=== PATIENT | male | born 2005 | race Two or more races ===

== ENCOUNTER 2024-04-05 11:11 | Emergency (ER) | payer OTHER, SELFPAY ==
[2024-04-05 11:13] VITALS: BP 105/70
--- NOTE | 2024-04-05 12:01 | ED.GENMED ---
History of Present Illness
General
Chief Complaint: Throat Problem
Source: patient
Time Seen by Provider: 04/05/24 11:41
History of Present Illness
History of Present Illness:
18yoM with no significant past medical history presenting for evaluation of a sore throat. Patient reports having oral sex with a female 2 months ago. He was notified several days later by the female that she was not feeling well and that she
tested positive for gonorrhea. Patient went to [facility] and had a throat swab which was positive for gonorrhea. He received a dose of IM antibiotics at that time. Symptoms resolved for over a month but then recurred about 2.5 weeks ago.
He reports sore throat and states that he saw red bumps in the back of his throat. He also is having nausea, vomiting, diarrhea, and joint pains. He denies any fevers, rashes, joint swelling, dysuria, penile discharge. He was seen in follow-up
at [facility] and had a repeat gonorrhea test which was negative. He states he was also tested for syphilis and HIV which were negative. Patient believes he has mono and is requesting to be tested for this. He denies any sexual contact in
the past 2 months.
Phy Exam
General Physical Exam
General Presentation: well appearing and no apparent distress
General age: appears stated age
General Skin: warm and dry
General Habitus: normal
General Mental: alert
General Hydration: appears well hydrated
ENT Exam
ENT Exam: TM's normal, neck supple, normocephalic, pharyngeal erythema and other (Mild erythema to posterior oropharynx. No tonsillar hypertrophy or exudates. Uvula midline. Normal phonation. No trismus. Tolerating oral secretions without
difficulty. )
Cardiovascular Exam
Cardiovascular Exam: regular rate/rhythm and no murmur
Pulmonary Exam
Pulmonary Exam: lungs clear, no respiratory distress, no rales, no crackles and no wheezing
[place] Coma Scale
Eye Opening: Spontaneous
Verbal Response: Oriented
Motor Response: Obeys Commands
GCS Total Score: 15
Skin Exam
Skin Exam: normal color and warm/dry
Psychiatric Exam
Psychiatric Exam: normal mood/affect
Course
Orders/Labs/Results
Orders:
Orders
04/05/24 12:51
COVID-19 Antigen Urgent
Source: Nasal Swab
Complete Blood Count/With Diff Urgent
Comprehensive Metabolic Panel Urgent
Monotest Urgent
Influenza A+B Rapid Molecular Urgent
KANWAL Source: Nasal Swab
Specimen Description:
04/05/24 13:47
Rapid Strep Group A Urgent
KANWAL Source: Throat/Pharynx
Specimen Description:
Date Specimen was Collected: 04/05/24
Time Specimen was Collected: 13:37
04/05/24 14:18
Dexamethasone [Decadron] 10 mg PO NOW STA
Abnormal Lab Results
04/05/24
12:51
WBC 4.3 L 10^3/uL
(4.8-10.8)
Monoscreen Positive A
(Negative)
04/05/24 12:51
04/05/24 12:51
Vital Signs
Initial and Last Documented VS:
Initial Vital Signs
Temp Pulse Resp BP Pulse Ox
98.4 F 68 18 105/70 100
04/05/24 11:13 04/05/24 11:13 04/05/24 11:13 04/05/24 11:13 04/05/24 11:13
Last Documented Vital Signs
Temp Pulse Resp BP Pulse Ox
98.4 F 71 20 132/80 99
04/05/24 11:13 04/05/24 15:01 04/05/24 15:01 04/05/24 15:01 04/05/24 15:01
MDM/Problems Addressed
Differential Diagnosis Includes:
18yoM here with sore throat, nausea, vomiting, diarrhea, joint pains, fatigue x 2.5 weeks. Recently treated for gonorrhea, repeat testing 2 weeks ago was negative. Patient believes he has mono. He is afebrile and hemodynamically stable. He is
well-appearing in no acute distress. There is mild erythema to the posterior oropharynx. Exam is otherwise reassuring. Differential diagnosis includes but is not limited to: Viral illness, strep pharyngitis, mononucleosis
Initial ED plan: Check basic labs, Monospot, COVID/flu swab, and rapid strep testing.
*Critical Care Note
Total Time (30-74mins, 75-104mins- exclusive of procedures): Not Applicable
Update Note
Update Note:
Monospot is positive. COVID/flu negative. Strep negative. Labs unremarkable other than a very mild leukopenia. Patient stable for discharge. Will give dose of Decadron here. Supportive care discussed. He was advised to avoid contact sports
for 4 to 6 weeks. Advised follow-up with PCP and ED return precautions discussed. He expressed understanding and is agreeable to plan. He was discharged in stable condition.
ED Attending Note
-
Portions of this chart may have been created with voice recognition software.� Occasional wrong word or��sound alike� substitutions may have occurred due to the inherent limitations of voice recognition software.
Discharge Plan
Departure
Patient Disposition: Home (Routine Discharge)
Date of Disposition: 04/05/24
Time of Disposition: 14:17
Patient with high blood pressure during this ER visit?: No
Discharge Problem:
Mononucleosis
Instructions: Mononucleosis (DC)
Referrals:
Lian Mckay, DO [Family Provider] -
Activity Restrictions/Additional Instructions:
Drink plenty of fluids and rest. Take Tylenol and ibuprofen as needed for pain. No contact sports for 4-6 weeks.
Please follow-up with your family doctor. Return to the ER with any new or worsening symptoms.
Interventions
Interventions:
*Risk Screen - Suicide Last Done: 04/05/24 15:28
*General Assessment Last Done: 04/05/24 13:59
*Neglect/Abuse Screening Last Done: 04/05/24 15:27
ED- Fall Risk Assessment Last Done: 04/05/24 15:28
*ED COVID-19 Vaccine History Last Done: 04/05/24 15:28
*Nursing Disposition Last Done: 04/05/24 15:28
ED-EENT Assessment Last Done: 04/05/24 13:59
ED- Pulmonary Assessment Last Done: 04/05/24 13:59
Discharge Date and Time
Discharge Date/Time: 04/05/24 15:15
Print Language: LATVIAN
[2024-04-05 13:04] LABS: % Basophils 0.7 % (0-2); % Eosinophils 0.7 % (0-6); % Immature Granulocytes 0.2 % (0-0.5); % Monocytes 5.4 % (1.7-9.3); Absolute Lymphocytes 1.8 10^3/uL (1.2-3.4); Absolute Monocytes 0.2 10^3/uL (0.1-0.6); Absolute Neutrophils 2.2 10^3/uL (1.4-6.5); Hematocrit 39.9 % (39.0-52.0); Hemoglobin 14.7 g/dL (13.0-18.0); Mean Corp Hgb Conc. 36.8 g/dL (33.0-37.0); Mean Corpuscular Hgb 29.7 pg (27.0-31.0); Mean Corpuscular Volume 80.6 fL (80.0-94.0); Mean Platelet Volume 9.5 fL (7.4-10.4); Nucleated Red Blood Cells % 0 % (-); Platelet Count 382 10^3/uL (130-400); Red Blood Cell Count 4.95 10^6/uL (4.70-6.10); Red Cell Dist. Width 11.5 % (11.5-14.5); White Blood Cell Count 4.3 10^3/uL (4.8-10.8)
[2024-04-05 13:18] LABS: ALT (SGPT) 17 U/L (0-50); AST (SGOT) 24 U/L (17-59); Albumin 4.9 g/dl (3.5-5.0); Alkaline Phosphatase 66 U/L (38-126); Blood Urea Nitrogen 12 mg/dl (9-20); Calcium 10.1 mg/dl (8.4-10.2); Carbon Dioxide 23 mmol/L (22-30); Chloride 104 mmol/L (98-107); Glucose 93 mg/dl (70-99); Potassium 4.2 mmol/L (3.5-5.1); Sodium 140 mmol/L (135-145); Total Bilirubin 0.9 mg/dl (0.2-1.3); Total Protein 7.5 g/dl (6.3-8.2); eGFR > 60.00
[2024-04-05 13:20] LABS: COVID-19 Antigen Negative (Negative)
[2024-04-05 14:05] LABS: Monotest Positive (Negative)
[2024-04-05] MEDS: DECADRON 10 MG PO (14:58)
[2024-04-05 15:01] VITALS: BP 132/80
== END 2024-04-05 15:15 | disposition home or self-care (01) ==
LOC: EMR 11:11
PROVIDERS: Physician Assistant; EMERGENCY PHYSICIAN Emergency Medicine; FAMILY PHYSICIAN Family Medicine
DX: B27.90 Infectious mononucleosis, unspecified without complication (principal); R11.2 Nausea with vomiting, unspecified; R19.7 Diarrhea, unspecified; M25.50 Pain in unspecified joint; A54.9 Gonococcal infection, unspecified; Z11.52 Encounter for screening for COVID-19
CPT/HCPCS: 99283; 80053; 85025; 86308; 87070; 87502; 87811; 87880

== ENCOUNTER 2024-04-18 09:51 | Emergency (ER) | payer OTHER, SELFPAY ==
[2024-04-18 09:53] VITALS: BP 112/74
[2024-04-18 11:48] VITALS: BMI 16.8
[2024-04-18 12:02] VITALS: BP 132/76
--- NOTE | 2024-04-18 12:16 | ED.GENMED ---
History of Present Illness
<Filemon Amos MD, Resident - Last Filed: 04/18/24 14:57>
General
Chief Complaint: Abdominal Symptoms
Source: patient and records
Time Seen by Provider: 04/18/24 11:14
Travel History
Have you traveled to any high risk areas for coronavirus over the past 14 days?: No
Have you had any contact with someone who has COVID-19?: No
Do you have any symptoms of coronavirus? Fever > 100 degrees, chills, cough, shortness of breath, sore throat, loss of taste or smell, muscle aches, or headache?: No
History of Present Illness
History of Present Illness:
Judd Bourgeois, 18-year-old male with a recent history of gonorrhea pharyngitis and infectious mononucleosis, has had persistent abdominal pain, nausea, vomiting, fatigue, weakness, sore throat and intermittent fevers for the past 6 weeks. He had an
encounter of unprotected oral sex in early-February after which he was diagnosed and treated with an IM antibiotic shot for gonococcal pharyngitis at [facility]. Tested negative for chlamydia and syphilis at that time; negative for HIV 1 month
after the encounter. His symptoms resolved, but he started feeling sick again around mid-March. He tested positive for infectious mononucleosis in early-April. The symptoms have not improved, and the abdominal and oral symptoms have slightly
worsened. The patient is feeling very anxious about possibly having contracted HIV.
Review of Systems
<Filemon Amos MD, Resident - Last Filed: 04/18/24 14:57>
Review of Systems
Allergies reviewed?: Yes
All Other Systems: ROS reviewed and negative except as documented in HPI and ROS
Phy Exam
<Filemon Amos MD, Resident - Last Filed: 04/18/24 14:57>
General Physical Exam
General Presentation: well appearing and no apparent distress
General Skin: warm and dry
General Habitus: normal
General Mental: alert
General Hydration: appears well hydrated
ENT Exam
ENT Exam: normocephalic and pharyngeal erythema
Eye Exam
Eye Exam: PERRL, cornea clear and conjunctiva normal
Cardiovascular Exam
Cardiovascular Exam: regular rate/rhythm, no edema, no murmur and normal peripheral pulses
Pulmonary Exam
Pulmonary Exam: lungs clear, no respiratory distress, no rales, no crackles, no rhonchi, no stridor, no wheezing and no cough
Gastrointestinal Exam
Gastrointestinal Exam: normal bowel sounds, soft, no organomegaly, no pulsatile mass, non distended, splenomegaly (mild) and tender (upper abdominal)
Neurological Exam
Neurological Exam: alert, oriented x3, no motor deficits and speech normal
Musculoskeletal Exam
Musculoskeletal Exam: full ROM and no edema
Skin Exam
Skin Exam: normal color, warm/dry, no rash and no petechia
Psychiatric Exam
Psychiatric Exam: normal mood/affect
Course
<Filemon Amos MD, Resident - Last Filed: 04/18/24 14:57>
Orders/Labs/Results
Orders:
Orders
04/18/24 11:51
Ondansetron HCl [Zofran] 4 mg PO NOW STA
04/18/24 12:04
Complete Blood Count/With Diff Urgent
Comprehensive Metabolic Panel Urgent
HIV 4th Generation [HIV Combo] Urgent
Lipase Urgent
Syphilis/T. pallidum Ab Reflex Urgent
Comment: RPR ADDED ON BY FLOOR 1PM 04-18-24
04/18/24 12:09
Herpes Simplex Vir Subtype PCR [S] Urgent
Herpes Source: Vesicular Fluid
04/18/24 12:24
Ondansetron Orally Disint [Zofran Odt (Orally Disintegrating)] 4 mg PO NOW STA
04/18/24 12:27
Add On- LAB Urgent
Tests Added?: RPR
04/18/24 12:33
CT Abd/pelvis W Iv Cont Urgent
Comment:
Reason For Exam: worsening abdominal pain; splenomegaly
04/18/24 12:36
Stool Culture Urgent
KANWAL Source: Feces/Stool
Specimen Description:
04/18/24 13:05
Chlamydia/GC by PCR Urgent
KANWAL Source: Urine
Specimen Description:
Source:: URINE
Date Specimen was Collected: 04/18/24
Time Specimen was Collected: 13:02
Abnormal Lab Results
04/18/24
12:04
Hct 38.1 L %
(39.0-52.0)
Glucose 103 H mg/dl
(70-99)
Calcium 10.6 H mg/dl
(8.4-10.2)
Albumin 5.3 H g/dl
(3.5-5.0)
04/18/24 12:04
04/18/24 12:04
Vital Signs
Initial and Last Documented VS:
Initial Vital Signs
Temp Pulse Resp BP Pulse Ox
97.7 F 68 18 112/74 97
04/18/24 09:53 04/18/24 09:53 04/18/24 09:53 04/18/24 09:53 04/18/24 09:53
Last Documented Vital Signs
Temp Pulse Resp BP Pulse Ox
97.7 F 72 16 132/76 98
04/18/24 09:53 04/18/24 12:02 04/18/24 12:02 04/18/24 12:02 04/18/24 12:02
<Lay Rodriguez MD - Last Filed: 04/18/24 15:26>
Orders/Labs/Results
Orders:
Orders
04/18/24 11:51
Ondansetron HCl [Zofran] 4 mg PO NOW STA
04/18/24 12:04
Complete Blood Count/With Diff Urgent
Comprehensive Metabolic Panel Urgent
HIV 4th Generation [HIV Combo] Urgent
Lipase Urgent
Syphilis/T. pallidum Ab Reflex Urgent
Comment: RPR ADDED ON BY FLOOR 1PM 04-18-24
04/18/24 12:09
Herpes Simplex Vir Subtype PCR [S] Urgent
Herpes Source: Vesicular Fluid
04/18/24 12:24
Ondansetron Orally Disint [Zofran Odt (Orally Disintegrating)] 4 mg PO NOW STA
04/18/24 12:27
Add On- LAB Urgent
Tests Added?: RPR
04/18/24 12:33
CT Abd/pelvis W Iv Cont Urgent
Comment:
Reason For Exam: worsening abdominal pain; splenomegaly
04/18/24 12:36
Stool Culture Urgent
KANWAL Source: Feces/Stool
Specimen Description:
04/18/24 13:05
Chlamydia/GC by PCR Urgent
KANWAL Source: Urine
Specimen Description:
Source:: URINE
Date Specimen was Collected: 04/18/24
Time Specimen was Collected: 13:02
Abnormal Lab Results
04/18/24
12:04
Hct 38.1 L %
(39.0-52.0)
Glucose 103 H mg/dl
(70-99)
Calcium 10.6 H mg/dl
(8.4-10.2)
Albumin 5.3 H g/dl
(3.5-5.0)
04/18/24 12:04
04/18/24 12:04
Vital Signs
Initial and Last Documented VS:
Initial Vital Signs
Temp Pulse Resp BP Pulse Ox
97.7 F 68 18 112/74 97
04/18/24 09:53 04/18/24 09:53 04/18/24 09:53 04/18/24 09:53 04/18/24 09:53
Last Documented Vital Signs
Temp Pulse Resp BP Pulse Ox
97.7 F 72 16 132/76 98
04/18/24 09:53 04/18/24 12:02 04/18/24 12:02 04/18/24 12:02 04/18/24 12:02
<Filemon Amos MD, Resident - Last Filed: 04/18/24 14:57>
MDM/Problems Addressed
Differential Diagnosis Includes:
Infectious mononucleosis; persistent gonococcal pharyngitis; chlamydia pharyngitis; herpes pharyngitis; syphilis; HIV
MDM/Problems Addressed:
Likely that the persistent constitutional, abdominal and oral symptoms are from the known infectious mononucleosis. Considering the slightly worsened abdominal symptoms, will get a CT AP to rule out splenic pathologies. Cannot completely exclude
other STIs, including HIV. Will obtain throat swab for herpes, gonorrhea and syphilis. Re-test for HIV and syphilis.
<Filemon Amos MD, Resident - Last Filed: 04/18/24 14:57>
*Critical Care Note
Total Time (30-74mins, 75-104mins- exclusive of procedures): Not Applicable
ED Attending Note
<Filemon Amos MD, Resident - Last Filed: 04/18/24 14:57>
-
Portions of this chart may have been created with voice recognition software.� Occasional wrong word or��sound alike� substitutions may have occurred due to the inherent limitations of voice recognition software.
<Lay Rodriguez MD - Last Filed: 04/18/24 15:26>
ED Attending Note
Patient seen and examined by attending physician: Yes
I performed a history and physical exam of patient and discussed management with resident, I reviewed resident's note and agree with documented findings and plan of care.: Yes
ED Attending Note:
I have seen and evaluated the patient with a [id number] encounter. I have spoken to the resident and involved in the medical history, the physical exam, medical decision making.
Evaluation and management service: agree unless noted differently below.
Results interpretation: agree unless noted differently below.
Patient is a 18-year-old man who is otherwise healthy presenting to the emergency department with persistent nausea vomiting diarrhea and abdominal pain. Patient states that he was diagnosed with mono a few weeks ago. He states that he has had
persistent nausea vomiting and diarrhea since then. He has multiple episodes nonbloody vomiting and diarrhea every day for the past 6 weeks. He is also had about 10 to 20 pound weight loss. He also notes he has been having joint pain. He states
that he did have gonorrhea and was treated with chlamydia. He did have a HIV screen a few months ago that was negative. His PCP sent him here for further evaluation and retesting for HIV. Patient states that he had oral intercourse many months
ago but none since then. No family history of immunodeficiency. No family history of GI problems. No lightheadedness dizziness. No syncopal events.
GENERAL: in no acute distress
HEENT: normocephalic, extraocular movements intact, moist oral mucosa
NECK: normal inspection
RESPIRATORY: no respiratory distress, clear to auscultation bilaterally
CARDIOVASCULAR: regular rate and rhythm
ABDOMEN/: soft, non-distended, diffusely tender,, no rebound or guarding
EXTREMITIES: non-tender, no edema/swelling
NEUROLOGIC: awake and alert, moves all extremities
SKIN: warm
Patient is a 18-year-old man who was recently diagnosed with mono and treated for gonorrhea presenting to the emergency department with weight loss joint pain and 6 weeks of nausea vomiting diarrhea. Vitals are unremarkable and exam does show
mildly diffuse tenderness. Unclear cause of patient's symptoms but will check for electrolyte derangement. Will check stool cultures. Will resend HIV screen. I did advise the patient would need rheumatology as well as GI follow-up given his
symptoms of everything is unremarkable. Anticipate discharge if he is able to tolerate p.o. Will send prescription for Zofran.
Discharge Plan
Departure
Patient Disposition: Home (Routine Discharge)
Date of Disposition: 04/18/24
Time of Disposition: 14:57
Patient with high blood pressure during this ER visit?: No
Condition: Good
Discharge Problem:
Postviral fatigue syndrome, Infectious mononucleosis
Instructions: Mononucleosis, Stress
Prescriptions:
New
ondansetron HCl 4 mg tablet
4 mg PO Q8H PRN (Reason: nausea and vomiting) Qty: 14 0RF
pantoprazole 20 mg tablet,delayed release (DR/EC)
20 mg PO DAILY 14 Days Qty: 14 0RF
Referrals:
UNKNOWN - PT DOES,NOT KNOW [Family Provider] -
Activity Restrictions/Additional Instructions:
Please follow-up with your primary. Consult gastroenterology and rheumatology outpatient.
Interventions
Interventions:
*Risk Screen - Suicide Last Done: 04/18/24 09:53
*General Assessment Last Done: 04/18/24 09:53
*Neglect/Abuse Screening Last Done: 04/18/24 09:53
ED- Fall Risk Assessment Last Done: 04/18/24 11:48
*ED COVID-19 Vaccine History Last Done: 04/18/24 11:48
VT-Fctakh-Snfctfwkai Assessment Last Done: 04/18/24 11:48
Discharge Date and Time
Print Language: GREEK
[2024-04-18] MEDS: ZOFRAN ODT (ORALLY DISINTEGRATING) 4 MG PO (12:27)
[2024-04-18 12:32] LABS: % Basophils 0.8 % (0-2); % Eosinophils 0.8 % (0-6); % Immature Granulocytes 0.2 % (0-0.5); % Lymphocytes 31.7 % (20.5-51.1); % Monocytes 5.3 % (1.7-9.3); % Neutrophils 61.2 % (42.2-75.2); Absolute Basophils 0.1 10^3/uL (0-0.2); Absolute Eosinophils 0.1 10^3/uL (0-0.7); Absolute Monocytes 0.3 10^3/uL (0.1-0.6); Absolute Neutrophils 3.8 10^3/uL (1.4-6.5); Hematocrit 38.1 % (39.0-52.0); Mean Corp Hgb Conc. 36.7 g/dL (33.0-37.0); Mean Corpuscular Hgb 29.7 pg (27.0-31.0); Mean Corpuscular Volume 80.7 fL (80.0-94.0); Mean Platelet Volume 9.9 fL (7.4-10.4); Nucleated Red Blood Cells % 0 % (-); Platelet Count 331 10^3/uL (130-400); Red Blood Cell Count 4.72 10^6/uL (4.70-6.10); Red Cell Dist. Width 11.8 % (11.5-14.5); White Blood Cell Count 6.3 10^3/uL (4.8-10.8)
[2024-04-18 12:38] LABS: ALT (SGPT) 22 U/L (0-50); AST (SGOT) 26 U/L (17-59); Albumin 5.3 g/dl (3.5-5.0); Alkaline Phosphatase 66 U/L (38-126); Blood Urea Nitrogen 9 mg/dl (9-20); Calcium 10.6 mg/dl (8.4-10.2); Carbon Dioxide 26 mmol/L (22-30); Chloride 101 mmol/L (98-107); Estimated Creatinine Clearance 121 ml/min; Glucose 103 mg/dl (70-99); Lipase 69 U/L (23-300); Potassium 4.4 mmol/L (3.5-5.1); Sodium 141 mmol/L (135-145); Total Bilirubin 0.8 mg/dl (0.2-1.3); eGFR > 60.00
[2024-04-18 13:21] LABS: HIV Combo Negative (Negative)
[2024-04-18 16:08] VITALS: BP 130/69
[2024-04-20 17:16] LABS: HSV 1 Subtype by PCR Not Detected; HSV 2 Subtype by PCR Not Detected; Herpes Simplex Source Vesicle
== END 2024-04-18 16:09 | disposition home or self-care (01) ==
LOC: EMR 09:51
PROVIDERS: Emergency Medicine; Student in an Organized Health Care Education/Training Program; EMERGENCY PHYSICIAN Student in an Organized Health Care Education/Training Program
DX: G93.31 Postviral fatigue syndrome (principal); B27.90 Infectious mononucleosis, unspecified without complication
CPT/HCPCS: 99284; 74177; 80053; 83690; 85025; 86780; 87389; 87491; 87529; 87591; Q9967

== ENCOUNTER 2024-04-24 05:03 | Emergency (ER) | payer OTHER, SELFPAY ==
[2024-04-24 05:05] VITALS: BP 124/78
[2024-04-24 05:19] VITALS: BMI 17.9
[2024-04-24] MEDS: TORADOL 15 MG IV (06:12)
[2024-04-24] MEDS: ZOFRAN 4 MG IV (06:12)
[2024-04-24] MEDS: NSS 1000 IV (06:13)
[2024-04-24 06:27] LABS: ALT (SGPT) 23 U/L (0-50); AST (SGOT) 36 U/L (17-59); Albumin 4.5 g/dl (3.5-5.0); Alkaline Phosphatase 55 U/L (38-126); Blood Urea Nitrogen 12 mg/dl (9-20); Calcium 10.1 mg/dl (8.4-10.2); Carbon Dioxide 23 mmol/L (22-30); Chloride 103 mmol/L (98-107); Estimated Creatinine Clearance 124 ml/min; Glucose 97 mg/dl (70-99); Lipase 78 U/L (23-300); Potassium 3.8 mmol/L (3.5-5.1); Sodium 140 mmol/L (135-145); Total Bilirubin 0.9 mg/dl (0.2-1.3); Total Protein 7.2 g/dl (6.3-8.2); eGFR > 60.00
--- NOTE | 2024-04-24 06:50 | ED.GENMED ---
History of Present Illness
General
Chief Complaint: Abdominal Pain
Source: patient and family (Mother)
Exam Limitations: none
Time Seen by Provider: 04/24/24 05:44
History of Present Illness
History of Present Illness:
Patient complains of relatively acute onset of lower abdominal pain. Points thankfully to the right lower quadrant. Started about a day and a half ago. Was seen at a hospital in [place] with apparently a negative CT at that time. However pain
has persisted. Some nausea. Patient does state that he vomits frequently in the mornings and at times at the evenings. This is been going on for 4 years. He did vomit that morning. Etiology unknown. Has had a upper endoscopy a few years ago
that was unremarkable. Denies fever.
Past History
Past History
ED Past Medical History: Other (Chronic undiagnosed GI issues)
Review of Systems
Review of Systems
All Other Systems: ROS reviewed and negative except as documented in HPI and ROS
Constitutional: Denies fever
Respiratory: Reports no symptoms
: Reports no symptoms
Phy Exam
Physical Exam
Physical Exam:
GENERAL: Alert and oriented. Initially moaning in pain. Moaning was auditory from the desk. However when diverted and talking patient will calm down and talk without moaning or appearing in any distress.
EYE: Orbits normal.
NECK: Supple, no thyroid palpable
ENT: Pharynx without erythema
CARDIAC: Regular rate and rhythm without any obvious murmurs.
LUNGS: Clear breath sounds,normal
ABDOMEN: Soft, some mild referred pain to the right lower quadrant with gentle tapping. Mostly from the right upper quadrant. Tenderness in the right lower quadrant. No rebound or guarding no mass or hernia
NEUROLOGICAL: Alert and oriented , grossly non-focal
SKIN: Warm and dry, no rash or lesion, no discoloration, skin intact.
MUSCULOSKELETAL: No edema,no deformity.Good color
PSYCH: Normal and appropriate interaction.
Course
Orders/Labs/Results
Orders:
Orders
04/24/24 05:51
IV Insert/Care/Rem.- Treatment PRN
0.9% Sodium Chloride 1000 ml [Nss] 1,000 ml IV BOLUS
Ketorolac [Toradol] 15 mg IV NOW STA
Ondansetron Injectable [Zofran] 4 mg IV NOW STA
04/24/24 05:58
Complete Blood Count/With Diff Urgent
Comprehensive Metabolic Panel Urgent
Lipase Urgent
04/24/24 06:55
Iohexol [Omnipaque] See Protocol PO NOW STA
04/24/24 07:30
Drug Screen, Urine [Urine Drug Abuse Screen] Urgent
Date Specimen was Collected: 04/24/24
Time Specimen was Collected: 07:26
Urinalysis Reflex To Culture Urgent
Date Specimen was Collected: 04/24/24
Time Specimen was Collected: 07:26
Urine Microscopic Reflex Cult Urgent
Chlamydia/GC by PCR Urgent
KANWAL Source: U
Specimen Description:
Date Specimen was Collected: 04/24/24
Time Specimen was Collected: 07:26
Urine Culture Urgent
KANWAL Source: U
Specimen Description:
Date Specimen was Collected: 04/24/24
Time Specimen was Collected: 07:26
04/24/24 08:00
CT Abd/pel (oral only)-DH Only Urgent
Comment:
Reason For Exam: Right lower quadrant pain. Hematuria.
Iohexol [Omnipaque] See Protocol PO NOW STA
04/24/24 12:06
Add On- LAB Urgent
Tests Added?: urine cx, urine gc/chlymadia
Abnormal Lab Results
04/24/24 04/24/24
05:58 07:30
RBC 4.42 L 10^6/uL
(4.70-6.10)
Hct 36.3 L %
(39.0-52.0)
MCHC 37.5 H g/dL
(33.0-37.0)
Urine Ketones 1+ A
(Negative)
Ur Occult Blood Reflex 4+ A
(Negative)
Urine RBC 11-15 A /HPF
(0-2)
Urine Bacteria (Reflex) Few A
(Negative)
U Marijuana (THC) Screen Positive H
(Negative)
04/24/24 05:58
04/24/24 05:58
Vital Signs
Initial and Last Documented VS:
Initial Vital Signs
Temp Pulse Resp BP Pulse Ox
98.1 F 73 12 124/78 98
04/24/24 05:05 04/24/24 05:05 04/24/24 05:05 04/24/24 05:05 04/24/24 05:05
Last Documented Vital Signs
Temp Pulse Resp BP Pulse Ox
98.1 F 50 16 115/74 99
04/24/24 05:05 04/24/24 11:44 04/24/24 11:44 04/24/24 11:44 04/24/24 11:44
MDM/Problems Addressed
Differential Diagnosis Includes:
Patient with a complex abdominal issue history with recurrent vomiting for years of unknown etiology. However today his major complaint is right lower quadrant pain. Given the localization of discomfort and progression of symptoms unfortunately a
repeat CAT scan needs to be done. He was here about 2 weeks ago for mononucleosis. He has no left upper quadrant tenderness. Workup in progress.
*Radiology
Radiology exam reviewed: radiology read reviewed (No acute findings. Small nonobstructing stone right kidney)
*Pulse Oximetry
Patient hypoxic: no
*Critical Care Note
Total Time (30-74mins, 75-104mins- exclusive of procedures): Not Applicable
Data Reviewed
Review of Other/Old Records Reveals: Labs, Records, Radiology Studies and Testing
Update Note
Update Note:
Patient is remained medically stable and nontoxic. No further moaning in pain. He clears clinically stable. Workup unremarkable. Minimally positive urine. Workup unremarkable. No serious etiology found. Patient was offered admission for
intractable pain. However no strong indication for medical admission at this time. Patient and mom are comfortable with outpatient follow-up. Will follow-up with GI and urology. Urine culture pending.
ED Attending Note
-
Portions of this chart may have been created with voice recognition software.� Occasional wrong word or��sound alike� substitutions may have occurred due to the inherent limitations of voice recognition software.
Discharge Plan
Departure
Patient Disposition: Home (Routine Discharge)
Date of Disposition: 04/24/24
Time of Disposition: 12:04
Patient with high blood pressure during this ER visit?: No
Discharge Problem:
Lower abdominal pain
Instructions: Abdominal Pain
Prescriptions:
No Action
No Current Medications
0
Referrals:
Tristen Godinez MD [Active] - Next open appointment
Grant Reyes Jr., MD [Active] - Next open appointment
UNKNOWN - PT DOES,NOT KNOW [Family Provider] -
Activity Restrictions/Additional Instructions:
I would recommend calling both specialty groups for follow-up
Also follow-up with your primary physician
Urine culture should be back in 2 days
Return sooner with increased pain fever vomiting or any other concerning symptoms
Interventions
Interventions:
*Risk Screen - Suicide Last Done: 04/24/24 05:05
*General Assessment Last Done: 04/24/24 07:01
*Neglect/Abuse Screening Last Done: 04/24/24 07:01
ED- Fall Risk Assessment Last Done: 04/24/24 12:20
*ED COVID-19 Vaccine History Last Done: 04/24/24 07:01
*Nursing Disposition Last Done: 04/24/24 12:20
TG-Lourcu-Onifxxjjbw Assessment Last Done: 04/24/24 07:01
Discharge Date and Time
Discharge Date/Time: 04/24/24 12:24
Print Language: BERMUDIAN
[2024-04-24 07:01] LABS: % Basophils 0.8 % (0-2); % Immature Granulocytes 0.3 % (0-0.5); % Lymphocytes 34.1 % (20.5-51.1); % Monocytes 8.8 % (1.7-9.3); Absolute Basophils 0.1 10^3/uL (0-0.2); Absolute Eosinophils 0.1 10^3/uL (0-0.7); Absolute Monocytes 0.5 10^3/uL (0.1-0.6); Absolute Neutrophils 3.2 10^3/uL (1.4-6.5); Hematocrit 36.3 % (39.0-52.0); Hemoglobin 13.6 g/dL (13.0-18.0); Mean Corp Hgb Conc. 37.5 g/dL (33.0-37.0); Mean Corpuscular Hgb 30.8 pg (27.0-31.0); Mean Corpuscular Volume 82.1 fL (80.0-94.0); Nucleated Red Blood Cells % 0 % (-); Platelet Count 295 10^3/uL (130-400); Red Blood Cell Count 4.42 10^6/uL (4.70-6.10); Red Cell Dist. Width 11.9 % (11.5-14.5); White Blood Cell Count 5.9 10^3/uL (4.8-10.8)
[2024-04-24] MEDS: OMNIPAQUE 50 ML PO (07:24)
[2024-04-24 07:48] LABS: Urine Albumin Negative (Neg - Trace); Urine Bilirubin Negative (Negative); Urine Character Clear (Clear); Urine Color Yellow; Urine Glucose Negative (Negative); Urine Ketone 1+ (Negative); Urine Leukocyte Negative (Negative); Urine Nitrite Negative (Negative); Urine Occult Blood 4+ (Negative); Urine Urobilinogen Negative (Neg - 1+)
[2024-04-24 08:13] LABS: Amphetamines Negative (Negative); Barbiturates Negative (Negative); Benzodiazepines Negative (Negative); Buprenorphine Negative (Negative); Cocaine Negative (Negative); Methadone Negative (Negative); Methamphetamines Negative (Negative); Opiates Negative (Negative); Phencyclidine Negative (Negative)
[2024-04-24 08:14] LABS: Marijuana Positive (Negative); Tricyclic Antidepressants Negative (Negative)
[2024-04-24 08:24] LABS: Urine Mucus Few
[2024-04-24 08:26] LABS: Urine Bacteria Few (Negative)
[2024-04-24 09:09] VITALS: BP 122/57
[2024-04-24 11:44] VITALS: BP 115/74
== END 2024-04-24 12:24 | disposition home or self-care (01) ==
LOC: EMR 05:03
PROVIDERS: EMERGENCY PHYSICIAN Emergency Medicine
DX: R10.30 Lower abdominal pain, unspecified (principal)
CPT/HCPCS: 99284; 96374; 96375; 96361; 74176; 80053; 80306; 81003; 81015; 83690; 85025; 87086; 87491; 87591

== ENCOUNTER 2025-05-22 21:53 | Emergency (ER) | payer OTHER, SELFPAY ==
[2025-05-22 21:55] VITALS: BP 132/82
[2025-05-22 22:29] LABS: ALT (SGPT) 19 U/L (0-50); AST (SGOT) 23 U/L (17-59); Albumin 5.0 g/dl (3.5-5.0); Alkaline Phosphatase 53 U/L (38-126); Blood Urea Nitrogen 13 mg/dl (9-20); Calcium 10.2 mg/dl (8.4-10.2); Carbon Dioxide 32 mmol/L (22-30); Chloride 100 mmol/L (98-107); Glucose 82 mg/dl (70-99); Potassium 3.6 mmol/L (3.5-5.1); Sodium 136 mmol/L (135-145); Total Protein 8.0 g/dl (6.3-8.2); eGFR > 60.00
[2025-05-22 22:36] LABS: Hematocrit 40.8 % (39.0-52.0); Hemoglobin 14.5 g/dL (13.0-18.0); Mean Corp Hgb Conc. 35.5 g/dL (33.0-37.0); Mean Corpuscular Volume 86.6 fL (80.0-94.0); Nucleated Red Blood Cells % 0 % (-); Platelet Count 370 10^3/uL (130-400); Red Cell Dist. Width 11.5 % (11.5-14.5)
[2025-05-22 22:40] LABS: Troponin I < 0.012 ng/ml
--- NOTE | 2025-05-23 03:09 | DOWNTIME ---
There was a [employer] Client [employer]ret[employer] Downtime on 05/23/2025 from 0100 to 05/23/2025 at 0255. Downtime documentation of patient's care, including medication administrations, has been reconciled in the electronic record per guidelines. Refer to the
patient's paper chart under the miscellaneous tab to see printed paper medication records and downtime forms.
--- NOTE | 2025-05-28 12:45 | ED.GENMED ---
History of Present Illness
General
Chief Complaint: Chest Pain
Source: patient and family
Exam Limitations: none
Time Seen by Provider: 05/23/25 02:56
Nursing documentation reviewed up to this point in time: agreed with
History of Present Illness
History of Present Illness:
19-year-old male presents to the emergency department due to bumps on his throat and on his penis. He states he has been there for several months, and he was initially treated with antibiotics for oral gonorrhea. He states this was tested for cure
and he was seen by urology and ENT who did not have any further recommendations for him. He denies fever or pain at this time.
Past History
Past History
ED Past Medical History: Other (Chronic undiagnosed GI issues)
ED Past Surgical History: None
Social History
Tobacco: Non-smoker
Alcohol: None
Drug: None
Personal: Single
Living: with family
Review of Systems
Review of Systems
Allergies reviewed?: Yes
All Other Systems: Not applicable
Constitutional: Reports no symptoms
EENT: Reports sore throat
Respiratory: Reports no symptoms
Cardiac: Reports no symptoms
ABD/GI: Reports no symptoms
: Reports no symptoms
Musculoskeletal: Reports no symptoms
Skin: Reports rash
Neurological: Reports no symptoms
Endocrine: Reports no symptoms
Hematologic/Lymphatic: Reports no symptoms
Psychiatric: Reports no symptoms
Phy Exam
Physical Exam
Physical Exam:
Physical Exam
General: no apparent distress, not acutely ill
Neck: supple. no meningeal signs. normal posterior pharynx
Heart: s1/s2 regular rate and rhythm, no murmur. equal radial
pulses.
HEENT: Pupils equal round reactive to light, EOMI
Lungs: no acute respiratory distress. clear bilaterally
Abdomen: normal bowel sounds. not tender. no CVAT
Neuro: alert and oriented. no focal neurological deficits cranial nerves II through XII intact
Skin: no rash
Psychiatric: well kept. interactive and cooperative
Extremities: no edema. no calf tenderness. negative homans. good distal pulses
Genitourinary Exam Male
Exam Male: circumcised, no CVAT, no discharge, normal external genitalia, normal testicular exam, no evidence of trauma, no lesions, no testicular swelling and no testicular tenderness
Scores
Heart Score for Chest Pain Patients
STEMI patient?: No
History: Slightly or Non-Suspicious
ECG: Normal
Age: </= 45 years
Risk Factors: No Risk Factors
Troponin: </= Normal Limit
Heart Score for Chest Pain Patients: 0
Heart Score Risk: 2.5% MACE over next 6 weeks
Course
Orders/Labs/Results
Orders:
Orders
05/22/25 21:58
Electrocardiogram (*1) Urgent
Reason for Study: Chest Pain
05/22/25 21:59
EKG- Treatment ONCE
05/22/25 22:05
Complete Blood Count/With Diff Urgent
Comprehensive Metabolic Panel Urgent
Troponin I Urgent
Abnormal Lab Results
05/22/25
22:05
Neutrophils % 32.6 L %
(42.2-75.2)
Lymphocytes % 54.6 H %
(20.5-51.1)
Carbon Dioxide 32 H mmol/L
(22-30)
05/22/25 22:05
05/22/25 22:05
Vital Signs
Initial and Last Documented VS:
Initial Vital Signs
Temp Pulse Resp BP Pulse Ox
98.0 F 62 18 132/82 100
05/22/25 21:55 05/22/25 21:55 05/22/25 21:55 05/22/25 21:55 05/22/25 21:55
Last Documented Vital Signs
Temp Pulse Resp BP Pulse Ox
98.0 F 62 18 132/82 100
05/22/25 21:55 05/22/25 21:55 05/22/25 21:55 05/22/25 21:55 05/28/25 12:45
MDM/Problems Addressed
Differential Diagnosis Includes:
Strep throat, gonorrhea
MDM/Problems Addressed:
19-year-old male with normal exam, do not suspect STD or abscess. Normal EKG normal labs. Stable for discharge and follow-up with primary care return precautions given.
*Pulse Oximetry
SaO2: 100
Oxygen Mode of Delivery: Room air
Patient hypoxic: no
*EKG
Interpreted by ED Provider?: Yes
EKG Intrepretation Date: 05/28/25
EKG Intrepretation Time: 22:01
Interpretation: normal
Comparison EKG: no comparison EKG present
Heart Rate: 65
Rate: normal
Rhythm: sinus
[place]: normal axis
Interval: normal interval
QRS Pattern: normal QRS
Ischemia: no ischemia
*Critical Care Note
Total Time (30-74mins, 75-104mins- exclusive of procedures): Not Applicable
Patient Management
Social determinants of health affecting care: Living situation and Strong social support
Escalation/DeEscalation of care consider admission/obs:
Admit not indicated
Update Note
Update Note:
Patient left prior to receiving discharge instructions
ED Attending Note
-
Portions of this chart may have been created with voice recognition software.� Occasional wrong word or��sound alike� substitutions may have occurred due to the inherent limitations of voice recognition software.
Discharge Plan
Departure
Patient Disposition: Home (Routine Discharge)
Patient with high blood pressure during this ER visit?: Yes
Condition: Good
Discharge Problem:
Chronic sore throat
Prescriptions:
No Action
No Current Medications
0
Referrals:
Lian Mckay, DO [Family Provider]
Interventions
Interventions:
*Risk Screen - Suicide Last Done: 05/22/25 21:55
*General Assessment Last Done: 05/22/25 21:55
*Nursing Disposition Last Done: 05/23/25 03:13
Discharge Date and Time
Discharge Date/Time: 05/23/25 03:14
Print Language: [place]
== END 2025-05-23 03:14 | disposition home or self-care (01) ==
LOC: EMR 21:53
PROVIDERS: EMERGENCY PHYSICIAN Emergency Medicine; FAMILY PHYSICIAN Family Medicine
DX: J31.2 Chronic pharyngitis (principal); R07.9 Chest pain, unspecified
CPT/HCPCS: 99284; 80053; 84484; 85025; 93005